=== PATIENT | male | born 1960 | race African-American/Black ===

== ENCOUNTER 2019-06-23 10:29 | Emergency (ER) | payer OTHER ==
[~2019-06-23] VITALS: Ht 182.9 cm; Wt 136.0 kg
[2019-06-23] MEDS ORDERED: MECLIZINE 25MG TABLET PO ONE (11:30)
[2019-06-23 11:58] LABS: BASOPHILS % 0.5 % (0.0-2.0); EOSINOPHILS % 1.7 % (0.0-5.0); HEMATOCRIT. 47.3 % (42.0-52.0); HEMOGLOBIN. 15.8 g/dL (14.0-18.0); LYMPHOCYTES % 17.8 % (20.0-50.0); MEAN CORPUSCULAR HEMOGLOBIN 28.7 pg (28.0-32.0); MEAN CORPUSCULAR VOLUME 85.8 fL (80.0-94.0); MEAN PLATELET VOLUME 8.1 fl (7.4-10.4); MONOCYTES % 9.8 % (2.0-8.0); NEUTROPHILS % 70.2 % (40.0-76.0); PLATELET 190 x1000/uL (130-400); RED BLOOD CELL COUNT 5.51 mill/uL (4.7-6.1); RED CELL DISTRIBUTION WIDTH 13.9 % (11.6-14.6)
[2019-06-23 12:01] LABS: CHLORIDE 105 mEq/L (98-107)
[2019-06-23 12:05] LABS: ETHANOL BLOOD < 10 mg/dL
[2019-06-23 13:32] VITALS: BP 140/81
== END 2019-06-23 13:34 | disposition home or self-care (01) ==
LOC: ER 10:29
DX: R42 Dizziness and giddiness (principal); I10 Essential (primary) hypertension; E11.9 Type 2 diabetes mellitus without complications; F17.200 Nicotine dependence, unspecified, uncomplicated
CPT/HCPCS: 36415; 70450; 71045; 80053; 80320; 83690; 83880; 84484; 85025; 93005; 99284; J8597; G0480

== ENCOUNTER 2020-08-14 13:15 | Emergency (ER) | payer MEDICAID, OTHER ==
[~2020-08-14] VITALS: Ht 177.8 cm; Wt 90.0 kg
[2020-08-14 13:30] VITALS: BP 135/88
[2020-08-14] MEDS ORDERED: INSULIN REGULAR (HUMULIN R) 300UNITS/3ML VIAL SUBCUT ONE (14:45)
[2020-08-14] MEDS ORDERED: BO1 TP (15:02)
== END 2020-08-14 15:26 | disposition home or self-care (01) ==
LOC: ER 13:15
DX: N48.1 Balanitis (principal); E11.65 Type 2 diabetes mellitus with hyperglycemia; I10 Essential (primary) hypertension; Z79.4 Long term (current) use of insulin; Z79.84 Long term (current) use of oral hypoglycemic drugs
CPT/HCPCS: 82962; 96372; 99283; J1815

== ENCOUNTER 2020-09-03 17:29 | Emergency (ER) | payer MEDICAID ==
[~2020-09-03] VITALS: Ht 198.1 cm; Wt 136.0 kg
[~2020-09-03 17:29] MED LIST: BO1 TP
[2020-09-03] MEDS ORDERED: DOXY100C2 MT (18:55)
[2020-09-03] MEDS ORDERED: BO1 TP (18:58)
[2020-09-03 19:07] VITALS: BP 167/80
== END 2020-09-03 19:08 | disposition home or self-care (01) ==
LOC: ER 17:29
DX: N48.1 Balanitis (principal); E11.9 Type 2 diabetes mellitus without complications; I10 Essential (primary) hypertension
CPT/HCPCS: 99283

== ENCOUNTER 2022-01-12 17:41 | Emergency (ER) | payer MEDICAID, OTHER ==
[~2022-01-12] VITALS: Ht 182.9 cm; Wt 122.0 kg
[~2022-01-12 17:41] MED LIST changes: +DOXY100C5 MT
[2022-01-12] MEDS ORDERED: METHOCARBAMOL 750MG TABLET PO SCH (20:45)
[2022-01-12] MEDS ORDERED: ACETAMINOPHEN 325MG TABLET PO ONE (20:45)
[2022-01-12] MEDS ORDERED: KETOROLAC 60MG/2ML VIAL IM ONE (20:45)
[2022-01-12] MEDS ORDERED: LIDOCAINE 5% PATCH TOP SCH (20:45)
[2022-01-12 20:56] VITALS: BP 139/82
[2022-01-12] MEDS ORDERED: LIDO1ADH23 TP (21:23)
[2022-01-12] MEDS ORDERED: IBUP-2028 MT (21:23)
[2022-01-12] MEDS ORDERED: METH-653 MT (21:23)
== END 2022-01-12 21:32 | disposition home or self-care (01) ==
LOC: ER 17:41
DX: G58.9 Mononeuropathy, unspecified (principal); I10 Essential (primary) hypertension; E11.9 Type 2 diabetes mellitus without complications; Z79.899 Other long term (current) drug therapy
CPT/HCPCS: 96372; 99284; J1885

== ENCOUNTER 2022-02-18 16:55 | Emergency (ER) | payer MEDICAID ==
[~2022-02-18] VITALS: Ht 182.9 cm; Wt 100.0 kg
[~2022-02-18 16:55] MED LIST changes: +IBUP-2028 MT; +LIDO1ADH23 TP; +METH-653 MT
[2022-02-18 17:12] VITALS: BP 145/91
[2022-02-18] MEDS ORDERED: ACETAMINOPHEN 500MG TABLET PO ONE (20:15)
[2022-02-21 04:10] LABS: NEISSERIA GONORRHOEAE NAA Negative (Negative)
== END 2022-02-18 20:10 | disposition home or self-care (01) ==
LOC: ER 16:55
DX: H92.01 Otalgia, right ear (principal); E11.9 Type 2 diabetes mellitus without complications; M79.89 Other specified soft tissue disorders; Z20.2 Contact with and (suspected) exposure to infections with a predominantly sexual mode of transmission; I10 Essential (primary) hypertension
CPT/HCPCS: 87491; 87591; 99282

== ENCOUNTER 2023-08-03 18:29 | Emergency (ER) | payer MEDICAID, OTHER ==
[~2023-08-03] VITALS: Ht 185.4 cm; Wt 118.0 kg
[2023-08-03 18:47] VITALS: TEMP 98.2; O2SAT 100
[2023-08-03 19:21] LABS: BASOPHILS % 0.8 % (0.0-2.0); EOSINOPHILS % 1.3 % (0.0-5.0); HEMOGLOBIN. 13.6 g/dL (14.0-18.0); LYMPHOCYTES % 14.2 % (20.0-50.0); MEAN CORPUSCULAR HEMOGLOBIN 28.1 pg (28.0-32.0); MEAN CORPUSCULAR HGB CONC 33.2 g/dL (31.0-37.0); MEAN CORPUSCULAR VOLUME 84.5 fL (80.0-94.0); MEAN PLATELET VOLUME 7.5 fl (7.4-10.4); MONOCYTES % 9.2 % (2.0-8.0); NEUTROPHILS % 74.5 % (40.0-76.0); PLATELET 247 x1000/uL (130-400); RED BLOOD CELL COUNT 4.85 mill/uL (4.7-6.1); RED CELL DISTRIBUTION WIDTH 13.5 % (11.6-14.6); WHITE BLOOD COUNT 10.3 x1000/uL (4.5-11.0)
[2023-08-03 19:35] LABS: ALANINE AMINOTRANSFERASE 13 IU/L (10-49); ALBUMIN 4.1 g/dL (3.2-4.8); ASPARTATE AMINOTRANSFERASE 13 IU/L (<34); BILIRUBIN TOTAL 0.4 mg/dL (0.1-1.0); CALCIUM 8.3 mg/dL (8.7-10.4); CARBON DIOXIDE 26 mEq/L (21-32); CHLORIDE 101 mEq/L (98-107); GLUCOSE 244 mg/dL (70-105); POTASSIUM 4.2 mEq/L (3.5-5.1); PROTEIN TOTAL 6.5 g/dL (6.0-8.3); SODIUM 133 mEq/L (136-145); UREA NITROGEN BLOOD 16 mg/dL (9-23)
[2023-08-03] MEDS: LIDOCAINE HCL/PF 1% 10 MG/ML 5ML VIAL INFIL ONE (20:53)
[2023-08-03] MEDS ORDERED: SULF1TAB48 MT (21:07)
[2023-08-03] MEDS ORDERED: CEPH500C2 MT (21:07)
[2023-08-03 22:12] VITALS: BP 119/67; PULSE 88; RESP 16
== END 2023-08-03 22:13 | disposition home or self-care (01) ==
LOC: ER 18:29
DX: L03.116 Cellulitis of left lower limb (principal); L03.115 Cellulitis of right lower limb; L02.612 Cutaneous abscess of left foot; I10 Essential (primary) hypertension; E11.9 Type 2 diabetes mellitus without complications
CPT/HCPCS: 10060; 36415; 80053; 83880; 85025; 93970; 99284; J3490

== ENCOUNTER 2023-11-11 13:49 | Emergency (ER) | payer OTHER ==
[~2023-11-11] VITALS: Ht 182.9 cm; Wt 127.0 kg
[~2023-11-11 13:49] MED LIST changes: +CEPH500C2 MT; +SULF1TAB48 MT
[2023-11-11 14:00] VITALS: O2SAT 100
[2023-11-11 14:26] LABS: BASOPHILS % 0.5 % (0.0-2.0); EOSINOPHILS % 0.9 % (0.0-5.0); HEMATOCRIT. 40.6 % (42.0-52.0); HEMOGLOBIN. 13.4 g/dL (14.0-18.0); LYMPHOCYTES % 12.7 % (20.0-50.0); MEAN CORPUSCULAR HEMOGLOBIN 27.4 pg (28.0-32.0); MEAN CORPUSCULAR VOLUME 83.1 fL (80.0-94.0); MEAN PLATELET VOLUME 7.5 fl (7.4-10.4); MONOCYTES % 7.4 % (2.0-8.0); NEUTROPHILS % 78.5 % (40.0-76.0); PLATELET 268 x1000/uL (130-400); RED BLOOD CELL COUNT 4.89 mill/uL (4.7-6.1); RED CELL DISTRIBUTION WIDTH 13.6 % (11.6-14.6); WHITE BLOOD COUNT 9.8 x1000/uL (4.5-11.0)
[2023-11-11 14:39] LABS: CHLORIDE 105 mEq/L (98-107); POTASSIUM 4.3 mEq/L (3.5-5.1); SODIUM 138 mEq/L (136-145)
[2023-11-11 14:40] LABS: CALCIUM 9.8 mg/dL (8.7-10.4); CARBON DIOXIDE 27 mEq/L (21-32)
[2023-11-11 14:45] LABS: UREA NITROGEN BLOOD 14 mg/dL (9-23)
[2023-11-11 14:53] LABS: GLUCOSE 73 mg/dL (70-105)
[2023-11-11 17:06] LABS: CLARITY URINE CLEAR (CLEAR); COLOR URINE YELLOW (YELLOW); GLUCOSE URINE NEGATIVE (NEGATIVE); KETONES URINE NEGATIVE (NEGATIVE); LEUKOCYTE ESTERASE URINE NEGATIVE (NEGATIVE); NITRITE URINE NEGATIVE (NEGATIVE); OCCULT BLOOD URINE NEGATIVE (NEGATIVE); PROTEIN URINE NEGATIVE (NEGATIVE); SPECIFIC GRAVITY URINE 1.017 (1.005-1.030)
[2023-11-11 18:41] VITALS: BP 169/96; PULSE 98; RESP 16; TEMP 98.3
[2023-11-11] MEDS: IBUPROFEN 600MG TABLET PO ONE (18:42)
== END 2023-11-11 18:42 | disposition home or self-care (01) ==
LOC: ER 14:02
DX: M79.605 Pain in left leg (principal); E11.9 Type 2 diabetes mellitus without complications; I10 Essential (primary) hypertension; Z79.899 Other long term (current) drug therapy
CPT/HCPCS: 36415; 80048; 81003; 85025; 93970; 99284

== ENCOUNTER 2024-06-20 10:02 | Emergency (ER) | payer MEDICAID, OTHER ==
[~2024-06-20] VITALS: Ht 182.9 cm; Wt 118.0 kg
[2024-06-20 10:11] VITALS: O2SAT 99
[2024-06-20] MEDS: FUROSEMIDE 40MG TABLET PO ONE (12:15)
[2024-06-20 13:19] LABS: HEMOGLOBIN 13.7 g/dL (14.0-18.0); MEAN CORPUSCULAR HGB CONC 33.3 g/dL (31.0-37.0); MEAN CORPUSCULAR VOLUME 83.9 fL (80.0-94.0); PLATELET 245 x1000/uL (130-400); RED BLOOD CELL COUNT 4.88 mill/uL (4.7-6.1); WHITE BLOOD COUNT 6.7 x1000/uL (4.5-11.0)
[2024-06-20 13:48] LABS: CARBON DIOXIDE 26 mEq/L (21-32); CHLORIDE 102 mEq/L (98-107); POTASSIUM 4.2 mEq/L (3.5-5.1); SODIUM 136 mEq/L (136-145)
[2024-06-20 13:49] LABS: CALCIUM 9.7 mg/dL (8.7-10.4)
[2024-06-20 13:54] LABS: CREATININE 0.9 mg/dL (0.6-1.3); UREA NITROGEN BLOOD 10 mg/dL (9-23)
[2024-06-20 13:57] LABS: GLUCOSE 282 mg/dL (70-105)
[2024-06-20 14:57] VITALS: BP 125/68; PULSE 87; RESP 16; TEMP 36.78072; O2SAT 99
== END 2024-06-20 14:57 | disposition home or self-care (01) ==
LOC: ER 10:02
DX: R60.0 Localized edema (principal); E11.9 Type 2 diabetes mellitus without complications; I11.0 Hypertensive heart disease with heart failure; I50.9 Heart failure, unspecified
CPT/HCPCS: 36415; 71045; 80048; 83880; 85027; 99284

== ENCOUNTER 2025-04-27 10:56 | Emergency (ER) | payer OTHER ==
[~2025-04-27] VITALS: Ht 185.4 cm; Wt 90.0 kg
[2025-04-27 11:51] VITALS: O2SAT 98
[2025-04-27 14:41] LABS: BASOPHILS % 0.8 % (0.0-2.0); EOSINOPHILS % 2.4 % (0.0-5.0); HEMATOCRIT. 44.7 % (42.0-52.0); HEMOGLOBIN. 14.6 g/dL (14.0-18.0); LYMPHOCYTES % 19.8 % (20.0-50.0); MEAN PLATELET VOLUME 7.9 fl (7.4-10.4); MONOCYTES % 7.1 % (2.0-8.0); NEUTROPHILS % 69.9 % (40.0-76.0); PLATELET 238 x1000/uL (130-400); RED BLOOD CELL COUNT 5.45 mill/uL (4.7-6.1); RED CELL DISTRIBUTION WIDTH 14.4 % (11.6-14.6)
[2025-04-27 15:07] LABS: CREATININE 0.8 mg/dL (0.6-1.3); UREA NITROGEN BLOOD 14 mg/dL (9-23)
[2025-04-27] MEDS: IOHEXOL-300 100 ML BOTTLE ONE (15:38)
[2025-04-27 16:41] VITALS: BP 120/80; PULSE 75; RESP 18; TEMP 36.5; O2SAT 98
== END 2025-04-27 16:47 | disposition home or self-care (01) ==
LOC: ER 10:56
DX: R22.1 Localized swelling, mass and lump, neck (principal); E11.9 Type 2 diabetes mellitus without complications; I11.0 Hypertensive heart disease with heart failure; I50.9 Heart failure, unspecified
CPT/HCPCS: 99285; 70491; 80048; 85025; 36415; Q9967